=== PATIENT | female | born 1955 | race Asian ===

== ENCOUNTER 2024-02-26 09:49 | Emergency (ER) | payer MEDICARE, SELFPAY ==
[2024-02-26 09:55] VITALS: BP 130/86
[2024-02-26 10:51] VITALS: BMI 20.3
[2024-02-26] MEDS: PEPCID 20 MG IV (10:55)
[2024-02-26] MEDS: ZOFRAN 4 MG IV (10:55)
[2024-02-26] MEDS: NSS 1000 IV (10:56)
[2024-02-26 11:03] LABS: % Basophils 0.1 % (0-2); % Eosinophils 0.1 % (0-6); % Immature Granulocytes 0.5 % (0-0.5); % Neutrophils 94.3 % (42.2-75.2); Absolute Immature Granulocytes 0.1 10^3/uL (0-0.05); Absolute Lymphocytes 0.3 10^3/uL (1.2-3.4); Absolute Monocytes 0.4 10^3/uL (0.1-0.6); Absolute Neutrophils 12.6 10^3/uL (1.4-6.5); Hemoglobin 13.5 g/dL (12.0-16.0); Mean Corp Hgb Conc. 33.8 g/dL (33.0-37.0); Mean Corpuscular Hgb 25.9 pg (27.0-31.0); Mean Corpuscular Volume 76.6 fL (81.0-99.0); Mean Platelet Volume 8.8 fL (7.4-10.4); Nucleated Red Blood Cells % 0 %; Platelet Count 267 10^3/uL (130-400); Red Blood Cell Count 5.22 10^6/uL (4.20-5.40); White Blood Cell Count 13.4 10^3/uL (4.8-10.8)
[2024-02-26 11:22] LABS: ALT (SGPT) 47 U/L (0-35); AST (SGOT) 28 U/L (14-36); Albumin 4.6 g/dl (3.5-5.0); Alkaline Phosphatase 67 U/L (38-126); Blood Urea Nitrogen 18 mg/dl (7-17); Calcium 9.3 mg/dl (8.4-10.2); Carbon Dioxide 21 mmol/L (22-30); Chloride 103 mmol/L (98-107); Estimated Creatinine Clearance 65 ml/min; Glucose 127 mg/dl (70-99); Lipase 26 U/L (23-300); Potassium 4.1 mmol/L (3.5-5.1); Sodium 139 mmol/L (135-145); Total Protein 7.8 g/dl (6.3-8.2); eGFR > 60.00
[2024-02-26] MEDS: TYLENOL 650 MG PO (11:47)
[2024-02-26 11:48] LABS: Urine Albumin Negative (Neg - Trace); Urine Bilirubin Negative (Negative); Urine Character Clear (Clear); Urine Color Yellow; Urine Glucose Negative (Negative); Urine Ketone 1+ (Negative); Urine Leukocyte Trace (Negative); Urine Nitrite Negative (Negative); Urine Occult Blood Negative (Negative); Urine Specific Gravity 1.015 (<1.030); Urine Urobilinogen Negative (Neg - 1+)
[2024-02-26 12:01] VITALS: BP 104/68
[2024-02-26 12:19] LABS: Urine Red Blood Cell None Seen /HPF (0-2); Urine White Cell 0-2 /HPF (0-5)
--- NOTE | 2024-02-26 12:33 | ED.GENMED ---
History of Present Illness
General
Chief Complaint: Abdominal Symptoms
Source: patient
Exam Limitations: none
Time Seen by Provider: 02/26/24 10:31
Nursing documentation reviewed up to this point in time: agreed with
Travel History
Have you had any contact with someone who has COVID-19?: No
Do you have any symptoms of coronavirus? Fever > 100 degrees, chills, cough, shortness of breath, sore throat, loss of taste or smell, muscle aches, or headache?: No
History of Present Illness
History of Present Illness:
69-year-old female presenting to the emergency department concerns of nausea vomiting diarrhea starting last night no blood in the bladder vomit. No significant abdominal pain at this time. Had some crampy pain yesterday. No fevers no chest pain
or shortness of breath.
Past History
Past History
ED Past Medical History: None
ED Past Surgical History: None
Social History
Tobacco: Non-smoker
Alcohol: None
Drug: None
Review of Systems
Review of Systems
Allergies reviewed?: Yes
All Other Systems: ROS reviewed and negative except as documented in HPI and ROS
Phy Exam
Physical Exam
Physical Exam:
GENERAL: Alert , in no apparent distress
EYE: pupils equal and reactive
NECK: Supple, no significant adenopathy.
ENT: o/p clr, mmm.
CARDIAC: Regular rate and rhythm .
LUNGS: Clear breath sounds bilaterally, no acute respiratory distress, no wheezes/rales/rhonchi
ABDOMEN: Soft, without focal tenderness, no r/g, no cvat
NEUROLOGICAL: Alert and oriented, no focal neuro deficits
SKIN: Warm and dry, skin intact.
MUSCULOSKELETAL: No edema, well perfused.
PSYCH: Normal and appropriate interaction.
Course
Orders/Labs/Results
Orders:
Orders
02/26/24 10:42
Electrocardiogram (*1) Stat
Reason for Study: Abdominal Pain
EKG- Treatment ONCE
0.9% Sodium Chloride 1000 ml [Nss] 1,000 ml IV BOLUS
Famotidine [Pepcid] 20 mg IV NOW STA
Ondansetron Injectable [Zofran] 4 mg IV NOW STA
02/26/24 10:52
Complete Blood Count/With Diff Urgent
Comprehensive Metabolic Panel Urgent
Lipase Urgent
02/26/24 11:39
Urinalysis Reflex To Culture Urgent
Date Specimen was Collected: 02/26/24
Time Specimen was Collected: 11:33
Urine Microscopic Reflex Cult Urgent
02/26/24 11:43
Acetaminophen [Tylenol] 650 mg PO NOW STA
Abnormal Lab Results
02/26/24 02/26/24
10:52 11:39
WBC 13.4 H 10^3/uL
(4.8-10.8)
MCV 76.6 L fL
(81.0-99.0)
MCH 25.9 L pg
(27.0-31.0)
Abs Immat Gran (auto) 0.1 H 10^3/uL
(0-0.05)
Absolute Neuts (auto) 12.6 H 10^3/uL
(1.4-6.5)
Absolute Lymphs (auto) 0.3 L 10^3/uL
(1.2-3.4)
Neutrophils % 94.3 H %
(42.2-75.2)
Lymphocytes % 2.0 L %
(20.5-51.1)
Carbon Dioxide 21 L mmol/L
(22-30)
BUN 18 H mg/dl
(7-17)
Creatinine 0.5 L mg/dL
(0.6-1.0)
Glucose 127 H mg/dl
(70-99)
ALT 47 H U/L
(0-35)
Urine Ketones 1+ A
(Negative)
Leukocyte Esterase Rfl Trace A
(Negative)
02/26/24 10:52
02/26/24 10:52
Vital Signs
Initial and Last Documented VS:
Initial Vital Signs
Temp Pulse Resp BP Pulse Ox
99.5 F 116 18 130/86 97
02/26/24 09:55 02/26/24 09:55 02/26/24 09:55 02/26/24 09:55 02/26/24 09:55
Last Documented Vital Signs
Temp Pulse Resp BP Pulse Ox
99.5 F 99 18 104/68 98
02/26/24 09:55 02/26/24 12:01 02/26/24 12:01 02/26/24 12:01 02/26/24 12:01
MDM/Problems Addressed
MDM/Problems Addressed:
69-year-old female presenting to the emergency department today with concerns of nausea vomiting diarrhea increased fatigue over the past 24 hours. Here patient generally well-appearing no acute distress no abdominal pain was given no Zofran fluids
and labs were checked. No emergent findings on labs other than slight white count 13.4. Patient with symptoms of receiving Zofran and famotidine. Stable for discharge with likely stomach bug return precautions given.
*Critical Care Note
Total Time (30-74mins, 75-104mins- exclusive of procedures): Not Applicable
ED Attending Note
-
Portions of this chart may have been created with voice recognition software.� Occasional wrong word or��sound alike� substitutions may have occurred due to the inherent limitations of voice recognition software.
Discharge Plan
Departure
Patient Disposition: Home (Routine Discharge)
Date of Disposition: 02/26/24
Time of Disposition: 12:39
Patient with high blood pressure during this ER visit?: No
Condition: Good
Covid-19: Not Applicable
Discharge Problem:
Vomiting, Diarrhea
Instructions: Nausea and Vomiting, Adult (DC)
Prescriptions:
New
ondansetron 4 mg tablet,disintegrating
4 mg PO Q8H PRN (Reason: nausea and vomiting) Qty: 7 0RF
No Action
meclizine 25 MG tablet
25 mg PO Q8HPRN PRN (Reason: nausea or vertigo) Qty: 20 0RF
Referrals:
Angel Drew, [Family Provider] -
Activity Restrictions/Additional Instructions:
You came to the emergency department today for concerns of nausea vomiting diarrhea. This is likely a stomach virus. Please take the Zofran 1 tab every 6 hours as needed as symptoms should be improving over the next few days. Return to the
emergency department for any worsening, new or concerning symptoms.
Interventions
Interventions:
*Risk Screen - Suicide Last Done: 02/26/24 11:00
*Neglect/Abuse Screening Last Done: 02/26/24 11:00
*Nursing Disposition Last Done: 02/26/24 12:57
[facility] Assessment Last Done: 02/26/24 11:00
Discharge Date and Time
Discharge Date/Time: 02/26/24 12:58
Print Language: GERMAN
== END 2024-02-26 12:58 | disposition home or self-care (01) ==
LOC: EMR 09:49
PROVIDERS: Physician Assistant; EMERGENCY PHYSICIAN Emergency Medicine; FAMILY PHYSICIAN Family Medicine
DX: R19.7 Diarrhea, unspecified (principal); R11.10 Vomiting, unspecified
CPT/HCPCS: 99284; 96374; 96375; 96361; 80053; 81003; 81015; 83690; 85025; 93005; 99285